=== PATIENT | male | born 1950 | race Caucasian/White ===

== ENCOUNTER 2018-08-01 06:44 | Inpatient (IN) ==
[2018-07-30 11:54] LABS: Basophils # 0.1 10*3/uL (0.0-0.2); Basophils % 0.9 % (0.0-0.8); Eosinophils # 0.3 10*3/uL (0.0-0.87); Eosinophils % 3.6 % (0.00-10.9); Hematocrit 45.2 VOL% (42.0-52.0); Hemoglobin 15.4 GM/DL (14.0-18.0); Immature Granulocytes % 0.4 %; Immature Granulocytes Absolute 0.03 #; Lymphocytes # 3.3 10*3/uL (1.4-4.0); Lymphocytes % 40.7 % (21.2-54.2); Mean Corpuscular HGB Conc 34.1 GM/DL (32-36); Mean Corpuscular Hemoglobin 33 PG (27-34); Mean Corpuscular Volume 97.6 FL (87-102); Mean Platelet Volume 9.2 FL (9.6-12.0); Monocytes # 0.8 10*3/uL (0.11-0.8); Monocytes % 9.3 % (1.7-12.7); Neutrophils # 3.7 10*3/uL (1.4-7.4); Neutrophils % 45.1 % (38.7-73.9); Platelet Count 276 T/CUMM (130-400); Red Blood Count 4.63 MC/CUMM (3.8-5.5); Red Cell Distribution Width 13.2 % (9.3-17.3); White Blood Count 8.1 T/CUMM (4-12)
[2018-07-30 12:24] LABS: Albumin 3.9 G/DL (3.4-5.0); Bilirubin,Total 0.4 MG/DL (0.2-1.0); Calcium 9.5 MG/DL (8.5-10.1); Osmolality,Calculated 274.7 MOS/KG (273-304); Potassium 5.5 MMOL/L (3.5-5.1); Total Protein 7.8 G/DL (6.4-8.3)
[~2018-08-01 06:44] MED LIST: ceFAZolin 1,000 MG in SYRINGE 1 EACH IV ONE
[2018-08-01 07:40] LABS: Calcium 8.5 MG/DL (8.5-10.1); Osmolality,Calculated 278.5 MOS/KG (273-304); Potassium 4.8 MMOL/L (3.5-5.1)
[2018-08-01] MEDS: LACTATED RINGERS 1,000 ML IV SCH ×3 (08:01→22:31)
[2018-08-01] MEDS ORDERED: DIAZEPAM 5 MG TABLET PO ONE (08:06)
[2018-08-01] MEDS ORDERED: FAMOTIDINE 20 MG TABLET PO ONE (08:06)
[2018-08-01] MEDS ORDERED: ceFAZolin 1,000 MG VIAL ONE (08:09)
[2018-08-01] MEDS ORDERED: LIDOCAINE 1% 20 ML VIAL ONE (08:40)
[2018-08-01] MEDS ORDERED: HEPARIN 5,000 UNIT/1 ML VIAL ONE (08:40)
[2018-08-01] MEDS ORDERED: TISSUE ADHESIVE 1 EACH APPLICATOR TOP ONE (10:39)
[2018-08-01] MEDS ORDERED: ONDANSETRON 4 MG/2 ML VIAL IV PRN ×2 (11:14→11:47)
[2018-08-01] MEDS ORDERED: GLUCAGON 1 MG VIAL IM PRN (11:14)
[2018-08-01] MEDS ORDERED: NALOXONE 0.4 MG/ML VIAL IV PRN (11:14)
[2018-08-01] MEDS ORDERED: HYDROmorphone 2 MG/1 ML VIAL IV PRN ×2 (11:14)
[2018-08-01] MEDS ORDERED: DEXTROSE 50% 25 GM/50 ML VIAL IV PRN (11:14)
[2018-08-01] MEDS ORDERED: PROMETHAZINE 25 MG/1 ML VIAL IM PRN (11:14)
[2018-08-01] MEDS ORDERED: oxyCODONE/ACETAMINOPHEN 5-325 MG TABLET PO PRN ×2 (11:14)
[2018-08-01] MEDS ORDERED: PHENYLEPHRINE DRIP 40 MG/250 ML PREMIX IV SCH ×2 (11:30→15:42)
[2018-08-01] MEDS ORDERED: NITROPRUSSIDE 100 MG in DEXTROSE 5% 250 ML IV SCH ×2 (11:30→15:41)
[2018-08-01] MEDS: HYDROmorphone 2 MG/1 ML VIAL IV PRN ×2 (11:30→11:45)
[2018-08-01] MEDS ORDERED: HYDROmorphone 2 MG/1 ML VIAL ONE (11:39)
[2018-08-01] MEDS ORDERED: ONDANSETRON 4 MG/2 ML VIAL ONE ×2 (11:39→11:45)
[2018-08-01] MEDS ORDERED: SEVOFLURANE 1 UNIT/15 MINUTE INH ONE (11:44)
[2018-08-01] MEDS ORDERED: HEPARIN 10,000 UNIT/10 ML VIAL ONE (11:44)
[2018-08-01] MEDS ORDERED: PROPOFOL 200 MG/20 ML VIAL IV ONE (11:44)
[2018-08-01] MEDS ORDERED: fentaNYL 100 MCG/2 ML VIAL ONE ×2 (11:44→11:45)
[2018-08-01] MEDS ORDERED: PROTAMINE SULFATE 50 MG/5 ML VIAL IV ONE (11:45)
[2018-08-01] MEDS ORDERED: PHENYLEPHRINE 1 MG/10 ML SYRINGE IV ONE (11:45)
[2018-08-01] MEDS ORDERED: methylPREDNISolone SOD SUC 125 MG/2 ML VIAL ONE (11:45)
[2018-08-01] MEDS ORDERED: ROCURONIUM 100 MG/10 ML VIAL IV ONE (11:45)
[2018-08-01] MEDS ORDERED: GLYCOPYRROLATE 0.4 MG/2 ML VIAL ONE (11:46)
[2018-08-01] MEDS ORDERED: NEOSTIGMINE 10 MG/10 ML VIAL ONE (11:46)
[2018-08-01] MEDS ORDERED: LACTATED RINGERS 1,000 ML IV ONE (11:47)
[2018-08-01] MEDS ORDERED: PHENYLEPHRINE DRIP 20 MG/250 ML PREMIX IV ONE (11:47)
[2018-08-01] MEDS ORDERED: HEPARIN/NACL 0.9% 2 UNITS/ML 500 ML IV ONE (11:47)
[2018-08-01] MEDS ORDERED: NITROGLYCERIN DRIP 50 MG/250 ML BOTTLE IV ONE (11:47)
[2018-08-01] MEDS ORDERED: INFLUENZA VIRUS VACCINE 0.5 ML SYRINGE IM ONE (17:24)
[2018-08-01] MEDS ORDERED: PRAVASTATIN 20 MG TABLET PO SCH (21:00)
[2018-08-01] MEDS: buPROPion 100 MG TABLET PO SCH (21:49)
[2018-08-02] MEDS: LACTATED RINGERS 1,000 ML IV SCH ×2 (08:56→11:22)
[2018-08-02] MEDS ORDERED: POTASSIUM CHLORIDE 8 MEQ CAPSULE PO SCH (09:00)
[2018-08-02] MEDS ORDERED: FUROSEMIDE 20 MG TABLET PO SCH (09:00)
[2018-08-02] MEDS ORDERED: predniSONE 5 MG TABLET PO SCH (09:00)
[2018-08-02] MEDS ORDERED: CLOPIDOGREL 75 MG TABLET PO SCH (09:00)
[2018-08-02] MEDS: buPROPion 100 MG TABLET PO SCH (10:32)
[2018-08-02 13:43] VITALS: BP 120/72
== END 2018-08-02 15:37 | disposition home or self-care (01) | DRG 39 ==
LOC: N.SDSINP 06:44 → N.ICU 12:16 → N.3E 08-02 13:32
PROVIDERS: ADMIT Surgery; ATTEND Surgery

== ENCOUNTER 2022-05-21 20:18 | Inpatient (IN) ==
[2022-05-21] MEDS ORDERED: ACETAMINOPHEN 325 MG TABLET ONE (21:26)
[2022-05-21] MEDS ORDERED: ACETAMINOPHEN 325 MG TABLET PO ONE (21:32)
[2022-05-21 21:42] LABS: Basophils % 0.6 % (0.0-0.8); Eosinophils % 0.3 % (0.00-10.9); Hematocrit 42.4 VOL% (42.0-52.0); Hemoglobin 15.1 GM/DL (14.0-18.0); Immature Granulocytes % 0.3 %; Immature Granulocytes Absolute 0.02 #; Lymphocytes # 1.6 10*3/uL (1.4-4.0); Lymphocytes % 25.1 % (21.2-54.2); Mean Corpuscular HGB Conc 35.6 GM/DL (32-36); Mean Corpuscular Volume 92.8 FL (87-102); Mean Platelet Volume 9.5 FL (9.6-12.0); Monocytes # 0.7 10*3/uL (0.11-0.8); Monocytes % 10.9 % (1.7-12.7); Neutrophils % 62.8 % (38.7-73.9); Platelet Count 182 T/CUMM (130-400); Red Blood Count 4.57 MC/CUMM (3.8-5.5); White Blood Count 6.5 T/CUMM (4-12)
[2022-05-21 22:11] LABS: Albumin 3.5 G/DL (3.4-5.0); Bilirubin,Total 0.4 MG/DL (0.20-1.00); Calcium 8.9 MG/DL (8.5-10.1); Osmolality,Calculated 259.8 MOS/KG (273-304); Potassium 3.9 MMOL/L (3.5-5.1); Total Protein 7.3 G/DL (6.4-8.2)
[2022-05-21] MEDS ORDERED: SODIUM CHLORIDE 0.9% 1,000 ML IV STA (23:43)
[2022-05-22] MEDS ORDERED: AZITHROMYCIN INJ 500 MG in SODIUM CHLORIDE 0.9% 250 ML IV STA (00:36)
[2022-05-22] MEDS ORDERED: cefTRIAXone 1,000 MG in SODIUM CHLORIDE 0.9% 100 ML IV STA (00:36)
[2022-05-22 00:59] LABS: Bacteria,Urine Occasional /HPF (Few); Blood, Urine Trace mg/dL (Negative); Glucose,Urine (UA) Negative (Negative); Ketones,Urine 40 mg/dL (Negative); Mucus,Urine Occasional /LPF (Occasional); Nitrite,Urine Negative (Negative); Protein,Urine 30 mg/dL (Negative); RBC,Urine 4 /HPF (0-4); Squamous Epithelial Cell,Urine Occasional /HPF (0-10); Urine Appearance Clear (Clear); Urine Color Yellow (Yellow)
[2022-05-22 01:00] LABS: Bilirubin,Urine Negative (Negative); Urine Urobilinogen 0.2 eU/dL (<2.0)
[2022-05-22] MEDS ORDERED: GLUCAGON 1 MG VIAL IM PRN (02:23)
[2022-05-22] MEDS ORDERED: ONDANSETRON 4 MG/2 ML VIAL IV PRN (02:28)
[2022-05-22] MEDS ORDERED: DEXTROSE 10% 250 ML BAG IV PRN (02:54)
[2022-05-22] MEDS ORDERED: SODIUM CHLORIDE 0.9% 1,000 ML IV SCH (03:00)
[2022-05-22 04:12] LABS: Basophils % 0.5 % (0.0-0.8); Eosinophils % 0.5 % (0.00-10.9); Hematocrit 42.4 VOL% (42.0-52.0); Hemoglobin 15.1 GM/DL (14.0-18.0); Immature Granulocytes % 0.5 %; Immature Granulocytes Absolute 0.03 #; Lymphocytes # 1.6 10*3/uL (1.4-4.0); Lymphocytes % 27.8 % (21.2-54.2); Mean Corpuscular HGB Conc 35.6 GM/DL (32-36); Mean Corpuscular Volume 93.2 FL (87-102); Monocytes # 0.6 10*3/uL (0.11-0.8); Monocytes % 10.8 % (1.7-12.7); Neutrophils % 59.9 % (38.7-73.9); Platelet Count 154 T/CUMM (130-400); Red Blood Count 4.55 MC/CUMM (3.8-5.5); Red Cell Distribution Width 13.1 % (9.3-17.3); White Blood Count 5.8 T/CUMM (4-12)
[2022-05-22] MEDS ORDERED: KETOROLAC 30 MG/1 ML VIAL ONE (04:16)
[2022-05-22 04:37] LABS: Atypical Lymphocytes Few; Platelet Estimate Adequate
[2022-05-22] MEDS ORDERED: KETOROLAC 30 MG/1 ML VIAL IM STA (04:51)
[2022-05-22 04:58] LABS: Alanine Aminotransferase 35 U/L (16-61); Albumin 3.1 G/DL (3.4-5.0); Alkaline Phosphatase 75 U/L (45-117); Aspartate Amino Transferase 29 U/L (0-37); Bilirubin,Total < 0.39 MG/DL (0.20-1.00); Blood Urea Nitrogen 11 MG/DL (7-18); Calcium 8.4 MG/DL (8.5-10.1); Carbon Dioxide 23 MMOL/L (21-32); Chloride 104 MMOL/L (98-107); Glucose 94 MG/DL (74-106); Osmolality,Calculated 268.1 MOS/KG (273-304); Potassium 3.9 MMOL/L (3.5-5.1); Sodium 135 MMOL/L (136-145); Total Protein 6.4 G/DL (6.4-8.2)
[2022-05-22] MEDS: ACETAMINOPHEN 325 MG TABLET PO PRN ×2 (09:32→22:30)
[2022-05-22] MEDS: CLOPIDOGREL 75 MG TABLET PO SCH (09:33)
[2022-05-22] MEDS: MULTIVITAMIN (CENTRUM) TABLET PO SCH (09:33)
[2022-05-22] MEDS: ENOXAPARIN 40 MG/0.4 ML SYRINGE SUBCUT SCH (09:34)
[2022-05-22] MEDS: ACYCLOVIR INJ 700 MG in SODIUM CHLORIDE 0.9% 250 ML IV SCH ×2 (15:00→22:31)
[2022-05-22] MEDS: GABAPENTIN 100 MG CAPSULE PO SCH ×2 (15:01→22:23)
[2022-05-22] MEDS ORDERED: SIMVASTATIN 10 MG TABLET PO SCH (21:00)
[2022-05-23] MEDS ORDERED: cefTRIAXone 1,000 MG VIAL IV SCH (00:01)
[2022-05-23] MEDS ORDERED: AZITHROMYCIN INJ 500 MG in SODIUM CHLORIDE 0.9% 250 ML IV SCH (03:30)
[2022-05-23 09:30] LABS: Calcium 8.3 MG/DL (8.5-10.1); Osmolality,Calculated 265.2 MOS/KG (273-304)
[2022-05-23] MEDS: ACYCLOVIR INJ 700 MG in SODIUM CHLORIDE 0.9% 250 ML IV SCH ×2 (09:47→13:48)
[2022-05-23] MEDS: ACETAMINOPHEN 325 MG TABLET PO PRN (09:49)
[2022-05-23] MEDS: CLOPIDOGREL 75 MG TABLET PO SCH (09:49)
[2022-05-23] MEDS: GABAPENTIN 100 MG CAPSULE PO SCH ×2 (09:49→14:26)
[2022-05-23] MEDS: MULTIVITAMIN (CENTRUM) TABLET PO SCH (09:49)
[2022-05-23] MEDS: ENOXAPARIN 40 MG/0.4 ML SYRINGE SUBCUT SCH (09:52)
[2022-05-23 12:10] VITALS: BP 121/53
[2022-05-24] MEDS ORDERED: cefTRIAXone 1,000 MG in SODIUM CHLORIDE 0.9% 100 ML IV SCH (09:00)
== END 2022-05-23 15:06 | disposition home or self-care (01) | DRG 194 ==
LOC: EDUNIT# → EDBD → N.ED 20:18 → N.EDINP 05-22 02:23 → SUATTDRO 05-22 02:23 → N.5E 05-22 04:40
PROVIDERS: ADMIT Internal Medicine; ATTEND Internal Medicine